=== PATIENT | female | born 1995 | race Caucasian/White ===

== ENCOUNTER 2020-09-22 09:50 | Emergency (ER) | payer BC, SELFPAY ==
--- NOTE | ~2020-09-22 | XR_ITS ---
EXAMINATION: XR chest 2V EXAM DATE: 09/22/2020 11:07 INDICATION: Cough and congestion for 3 days. History of asthma. Allergies. TECHNIQUE: Frontal and lateral projections of the chest obtained and reviewed. Comparison is made to prior examination from 07/15/2015. FINDINGS: Small amount of ill-defined right greater than left basilar predominant airspace disease, r eticulonodular opacities, could be developing acute infectious process. Please clinically correlate. There is no pneumothorax suspected. There are no pleural effusions. Cardiomediastinal silhouette is n ormal. There are no osseous abnormalities identified. IMPRESSION: Small amount of bilateral reticulonodular airspace disease most consistent with developin g acute infectious process. Reviewed, dictated and finalized at location A. IMPRESSION: Small amount of bilateral reticulonodular airspace disease most con sistent with developing acute infectious process.
[2020-09-22 10:03] VITALS: BP 152/86; PULSE 78; RESP 22; TEMP 36.3; O2SAT 97
[2020-09-22] MEDS: ALBUTEROL SULFATE NEB 2.5 MG/3 ML INH INHALATION (10:58)
[2020-09-22] MEDS: IPRATROPIUM BR 0.02% INH SOLN 0.5 MG/2.5 ML VIAL INHALATION (10:58)
--- NOTE | 2020-09-22 11:43 | ED.URI ---
HPI - URI/Sore Throat General Chief Complaint: Upper Respiratory Infection Stated Complaint: Asthma and allergies Time Seen by Provider: 09/22/20 10:51 Source: patient and RN notes reviewed Mode of arrival: ambulatory Limitations: no limitations History of Present Illness HPI Narrative: Patient presents today complaining of 3-day history of chest tightness, headache. States she has a productive cough that is chronic in nature, but it has increased over the past 3 days. States the cough has been present since 2011 when she was hospitalized for 3 months with Staphylococcus pneumonia. States she does have some shortness of breath at baseline due to her asthma, but it is worse now over the past 3 days. She also ports and rhinorrhea, sore throat, and postnasal drip related to her allergies. Denies fever. Every day she takes Xyzal, Claritin, Sudafed, and Singulair. She has been using her rescue inhaler as well. She does have Breo prescribed by her PCP, but she does not use it. States her ProAir inhaler normally helps her symptoms, but today is the first day it is not helping. MD elicited complaint: cough Related Data Home Medications Medication Instructions Recorded Confirmed albuterol sulfate 2 puff INHALATION QID PRN 09/22/20 09/22/20 levonorgestrel [Mirena] 1 device INTRAUTERINE ONCE 09/22/20 09/22/20 Allergies Allergy/AdvReac Type Severity Reaction Status Date / Time amoxicillin Allergy Mild swelling Verified 09/22/20 10:27 Review of Systems Review of Systems: Narrative: CONSTITUTIONAL: Denies body aches, fever, chills, or sweats. EYES: Denies visual changes, redness, or discharge. ENT: Denies otalgia. + Rhinorrhea, congestion, sore throat CARDIOVASCULAR: Denies chest pain, palpitations, or edema. RESPIRATORY:+ Cough, shortness of breath, chest tightness GASTROINTESTINAL: Denies abdominal pain, nausea, vomiting, or diarrhea. GENITOURINARY: Denies dysuria or hematuria. SKIN: Denies rash, itching, or wounds. MUSCULOSKELETAL: Denies back pain, joint pain, or myalgia. NEUROLOGIC: Denies numbness, tingling, or weakness. + Headache PSYCH: Denies depression or anxiety. [facility] Past Medical History Medical History Asthma History of staphylococcal pneumonia Comments Headache Exam Narrative: Exam Narrative: GENERAL: Well-appearing, well-nourished, and in no acute distress. HEAD: Normocephalic, atraumatic. EYES: EOMI. No redness or drainage. Conjunctivae normal. ENT: Mucous membranes pink and moist. Congested. TMs normal bilaterally. Throat normal. Uvula midline. NECK: Normal AROM. Supple. No lymphadenopathy. CHEST: No respiratory distress. Rhonchi throughout. Deep breaths elicit coughing episodes decreased aeration. Diminished in the bilateral bases. HEART: Regular rate and rhythm. No murmur appreciated. Normal peripheral pulses. EXTREMITIES: Normal range of motion. No edema. SKIN: Warm, dry, no rash. Capillary refill normal. Normal skin turgor. NEURO: No focal deficits. Alert and oriented x3. Gait steady. PSYCH: Normal affect. No signs of depression or anxiety. Course Course Emergency Course: After DuoNeb, increased aeration throughout. Patient can take a deeper breath and states she feels improved. Discussed x-ray and plan. Vital Signs Vital signs: Vital Signs Temperature 97.4 F L 09/22/20 10:03 Pulse Rate 78 09/22/20 10:03 Respiratory Rate 22 H 09/22/20 10:03 Blood Pressure 152/86 H 09/22/20 10:03 Pulse Oximetry 97 09/22/20 10:03 Temperature 97.4 F L 09/22/20 10:03 Pulse Rate 78 09/22/20 10:03 Respiratory Rate 22 H 09/22/20 10:03 Blood Pressure 152/86 H 09/22/20 10:03 Pulse Oximetry 97 09/22/20 10:03 Reviewed. Pt has been instructed to follow up with her PCP regarding her elevated blood pressure today. MDM - URI/Sore Throat Differential Diagnosis Differential diagnosis: Likely upper respiratory infectio
== END 2020-09-22 11:50 | disposition home or self-care (01) ==
PROVIDERS: Emergency Provider Nurse Practitioner
DX: J18.9 Pneumonia, unspecified organism (principal); J45.901 Unspecified asthma with (acute) exacerbation
CPT/HCPCS: 71046; 94640; 99203; G0463

== ENCOUNTER 2024-03-09 15:57 | Emergency (ER) | payer OTHER, SELFPAY ==
[2024-03-09 16:11] VITALS: BP 150/91; PULSE 79; RESP 16; TEMP 37; O2SAT 99
--- NOTE | 2024-03-09 16:23 | ED.SKABFB ---
HPI - Skin/Abscess/Foreign Bdy General Chief complaint: Skin/Abscess/Foreign Body Stated complaint: Rash History of Present Illness [facility] narrative: patient is a 28-year-old female, without significant past medical history, presents to [facility] with diffuse urticaria over her torso, upper and lower extremities. Her symptoms began yesterday after petting horses during the day. She does report that she washed her hands immediately after and she has no known allergy to horses however she developed this itchy rash following. She has taken 1 dose of Benadryl and has also apply calamine lotion. She notes that her rash has continued to spread, is intensely pruritic without associated painful or option. She denies throat tongue or lip swelling. She has no shortness of breath, no problems swallowing or breathing. She denies chance of . No other modifying factors are endorsed. Related Data Home Medications Medication Instructions Recorded Confirmed albuterol sulfate 90 mcg/actuation 2 puff inhalation QID PRN 09/22/20 09/22/20 aerosol inhaler Shortness Of Breath Or Wheezing levonorgestrel 21 mcg/24 hr (up to 1 device intrauterine ONCE 09/22/20 09/22/20 8 years) 52 mg intrauterine device (Mirena) Allergies Allergy/AdvReac Type Severity Reaction Status Date / Time amoxicillin Allergy Mild swelling Verified 09/22/20 10:27 Review of Systems Integumentary/Breasts: Comments: refer to [facility] Past Medical History Medical History Asthma History of staphylococcal pneumonia Exam Const: General: cooperative, healthy appearing, comfortable and no acute distress Nutritional Appearance: obese Orientation/consciousness: oriented to person, oriented to place, oriented to time and patient oriented x3 Limitations: no limitations HENMT: Head: normal to inspection Ears: hearing grossly normal bilaterally Face/Nose/Sinus: Normal external nose present and Normal nares present Mouth: Yes Normal oral and palatal mucosa present, Yes lip normal and Yes tongue normal Throat: posterior oropharynx normal, tonsils normal and uvula midline Other: face is spared of rash eruption Eyes: General: appearance normal, both eyes and all related structures Visual Magallanes: normal visual magallanes by confrontation Eyelids: eyelids normal Conjunctivae: conjunctivae normal Cornea: corneas normal Pupils: Equal, round and reactive pupils present EOM: EOMs intact bilaterally Neck: Neck: normal visual inspection, full ROM, no lymphadenopathy and no meningeal signs Thyroid: thyroid normal Carotids: normal carotid upstroke Resp: Effort & Inspection: normal respiratory effort Auscultation: clear to auscultation bilaterally Cardio: Palpation: normal PMI Rate: regular rate Rhythm: regular rhythm Heart sounds: S1 normal heart sound present and S2 normal heart sound present Back/Spine/Pelvis: Back: no CVA tenderness Skin: General skin exam: rashes ( diffuse urticaria noted over her anterior posterior torso, patchy erupt) Other: no pustules, no vesicles, no lymphangitis. Patient's face is spared Neuro: General: oriented to person, oriented to place, oriented to time and patient oriented x3 Cranial nerves: Yes CN's II-XII intact bilaterally Cognition (Neuro): normal cognition Speech: normal speech Extrem: General: full ROM Other: rash as aforementioned Course Course Emergency Course: patient has diffuse urticaria, no symptoms of anaphylaxis, suspect contact with allergen such as horses or something in the environment where she was petting horses yesterday when her symptoms began. Will treat with short steroid course, continue Benadryl every 6 hours, cool compresses and [id number] hydrocortisone cream or Caladryl for added symptom relief. Patient is agreeable plan. She will proceed to the ER if she develops any throat tongue or lip swelli
== END 2024-03-09 16:35 | disposition home or self-care (01) ==
PROVIDERS: Emergency Provider Nurse Practitioner Family
DX: L50.9 Urticaria, unspecified (principal); J45.909 Unspecified asthma, uncomplicated
CPT/HCPCS: 99213; G0463

== ENCOUNTER 2024-09-03 10:56 | Emergency (ER) | payer OTHER, SELFPAY ==
[2024-09-03 11:04] VITALS: BP 171/99; PULSE 121; RESP 20; TEMP 36.6; O2SAT 97
--- NOTE | 2024-09-03 11:13 | ED.URI ---
HPI - URI/Sore Throat General Chief Complaint: Upper Respiratory Infection Stated Complaint: throat Time Seen by Provider: 09/03/24 11:13 Source: patient, RN notes reviewed and old records reviewed Mode of arrival: ambulatory Limitations: no limitations History of Present Illness HPI Narrative: 29 year old female who presents to [facility] care with complaints of sore throat, body aches, sinus congestion and cough, and ear pain since Saturday. Patient reports that she has been taking Tylenol, Claritin, cough drops, throat spray for her symptoms. Patient reports that she does have a history of asthma and has been using her inhaler. Patient reports no known fevers but has had chills and sweats since yesterday. MD elicited complaint: cough, sore throat, rhinorrhea, nasal congestion, sinus pain and other (body aches) Pertinent past history: asthma Onset (ago): day(s) (5) Consistency: constant Severity: moderate Pain scale (0-10): 8 Able to tolerate fluids by mouth: Yes Exacerbating factors: swallowing Treatments prior to arrival: acetaminophen and other ( throat spray,Albuterol inhaler, Claritin, cough drops) Related Data Home Medications ?Medication ?Instructions ?Recorded ?Confirmed ?Last Taken ?Type albuterol sulfate 90 mcg/actuation 2 puff inhalation QID PRN 09/22/20 09/22/20 Unknown History aerosol inhaler Shortness Of Breath Or Wheezing levonorgestrel (Mirena) 1 device intrauterine ONCE 09/22/20 09/22/20 Unknown History Allergies Allergy/AdvReac Type Severity Reaction Status Date / Time amoxicillin Allergy Mild swelling Verified 09/03/24 11:13 Review of Systems Review of Systems: CONSTITUTIONAL: Reports malaise, chills, sweats, unknown if fever. EYES: Denies visual changes, redness, or discharge. ENT: Reports rhinorrhea, congestion, sinus pain, otalgia and sore throat. CARDIOVASCULAR: Denies chest pain, palpitations, or edema. RESPIRATORY: Reports cough.? reports some wheezing GASTROINTESTINAL: Denies abdominal pain, nausea, vomiting, diarrhea SKIN: Denies rash or itching. MUSCULOSKELETAL:reports myalgia. NEUROLOGIC: Denies headache. All systems reviewed & are unremarkable except as noted in HPI and below PMFSH Past Medical History Medical History (Updated 09/05/24 @ 08:56 by Karrie Garcia NP) Clavicle fracture left Sepsis due to pneumonia 2012 was hospitalized [facility] Asthma History of staphylococcal pneumonia Social History Social History Smoking status: Never smoker Alcohol intake: current Alcohol use details: social Substance use: current Substance use type: marijuana Living arrangements: with family Gender identity (if verbalized by the patient): Female Comments At time of signature, agree with nursing past medical, surgical, social and family history. There is no relevant family history pertinent to the presenting complaint Exam Narrative: GENERAL: Ill-appearing, well-nourished, and in some acute distress. HEAD: Normocephalic EYES: PERRLA, conjunctivae clear ENT: Nares clear, turbinates edematous and erythematous, clear discharge. Mucous membranes moist. TM pearly shaffer with dull light reflex bilaterally; no tragal tenderness. Oropharynx erythematous without lesions. Tonsils red enlarged and without exudate, no drooling, no hoarseness, no trismus, uvula midline.post nasal NECK: Supple. + lymphadenopathy CHEST: Coarse Scattered crackles with wheezing on auscultation, breath sounds equal. positive for wheezing, rhonchi, + crackles,, no stridor. No respiratory distress, speaks in full sentences.cough noted SAO2 97% on room air HEART: Regular rate and rhythm. No murmur heard. SKIN: Warm, dry, no rash. NEURO: Alert and oriented x3. PSYCH: Normal mood and affect Course Course Emergency Course: Patient is aware of diagnosis, understands and agrees to treatment plan.? Anticipatory guidance given.? Patient agrees to follow-up as directed and is aware of reasons to seek care at the emergency department. Portions of this record may have been created with voice recognition software Level of Care: Express Care Visit Vital Signs Vital signs: Vital Signs Temperature 36.6 C 09/03/24 11:04 Pulse Rate 121 H 09/03/24 11:04 Respiratory Rate 20 09/03/24 11:04 Blood Pressure 171/99 H 09/03/24 11:04 Pulse Oximetry 97 09/03/24 11:04 Oxygen Delivery Room Air 09/03/24 11:04 Temperature 36.6 C 09/03/24 11:04 Pulse Rate 121 H 09/03/24 11:04 Respiratory Rate 20 09/03/24 11:04 Blood Pressure 155/101 H 09/03/24 11:40 Pulse Oximetry 97 09/03/24 11:04 Oxygen Delivery Room Air 09/03/24 11:04 Reviewed MDM - URI/Sore Throat MDM Narrative Medical decision making narrative: Differential diagnosis considered: Blandon virus, strep pharyngitis, allergic rhinitis, upper respiratory tract infection, sinusitis, rhinosinusitis, nasopharyngitis. viral pharyngitis, otitis media, otitis externa, pneumonia, bronchitis, viral cough syndrome, viral syndrome, and influenza.? Exam findings show no acute concerns or changes; patient is non-toxic appearing and is in no distress.? Patient is appropriate for outpatient treatment and follow-up. Differential Diagnosis Differential diagnosis: Likely upper respiratory infection, viral infection, bronchitis, influenza, pharyngitis and other (strep pharyngitis, asthma, acute cough) Medical Records Attestation: I reviewed the patient's medical records. Lab Data Attestation: I reviewed the patient's lab results. Lab results narrative: Influenza A negative, Influenza B negative, COVID antigen negative, Strep screen negative Labs: Lab Results 09/03/24 Range/Units 11:10 POC Influenza A Ag Negative (Negative) POC Influenza B Ag Negative (Negative) POC SARS CoV-2 Ag Negative (Negative) POC Grp A Strep Screen Positive (Negative) Critical Care Time Critical Care Time Critical Care Time: No Discharge Plan Discharge Clinical Impression: Strep pharyngitis, Acute cough Patient Disposition: Home, Self-Care Condition: Stable Instructions: Antibiotic Form, Strep Throat (ED), Acute Cough (ED) Additional Instructions: You tested positive for Group A strep . Take the entire course of antibiotics. Throw away your current toothbrush and begin using a new toothbrush in 48 hours in order to prevent re-infection. Sanitize all reusable water bottles . Do not share items with others. Salt water gargles may alleviate some of the throat discomfort. You can take Tylenol or ibuprofen per the package instructions for pain/fever. Continue to use your inhaler as ordered and needed Prednisone take as prescribed If your symptoms persist, change or worsen significantly before you can contact your personal physician then please, without delay, go to the emergency department for further evaluation. Follow-up with PCP in 7-10 days or sooner if needed Follow up with PCP soon in regards to your blood pressure which is elevated above threshold for referral. Blood pressure above 120/80 may indicate pre-hypertension. 171/99 recheck 155/101 Patient Language: Armenian Prescriptions: New azithromycin 500 mg tablet 500 mg PO DAILY 5 Days Qty: 5 0RF prednisone 20 mg tablet 40 mg PO DAILY 5 Days Qty: 10 0RF No Action Mirena 20 mcg/24 hours (6 yrs) 52 mg Intrauterine Device 1 device INTRAUTERINE ONCE albuterol sulfate 90 mcg/actuation Hfa Aerosol Inhaler 2 puff INHALATION QID PRN (Reason: Shortness Of Breath Or Wheezing) Follow-up/Referrals: FARTUN,MD JUVENTINO [Primary Care Provider] - Stand Alone Forms: Work/School Release IP Time of Disposition: 11:38 Quality Concepcion Coma Scale Eyes: Open Verbal: Oriented and Alert Motor: Follows Commands Concepcion Coma Total Score: 15
[2024-09-03 11:32] LABS: EDCOVIDSCREEN Negative (Negative); EDINFLUASCREEN Negative (Negative); EDINFLUBSCREEN Negative (Negative); EDSTREPNEGPOS1 Positive (Negative)
[2024-09-03 11:40] VITALS: BP 155/101
== END 2024-09-03 11:40 | disposition home or self-care (01) ==
PROVIDERS: Emergency Provider Registered Nurse; PCP Family Medicine
DX: J02.0 Streptococcal pharyngitis (principal); R05.1 Acute cough; Z20.822 Contact with and (suspected) exposure to COVID-19; J45.909 Unspecified asthma, uncomplicated
CPT/HCPCS: 87426; 87804; 87880; 99213; G0463